=== PATIENT | female | born 1980 | race Caucasian/White ===

== ENCOUNTER 2016-07-21 05:58 | Inpatient (IN) | payer OTHER ==
[~2016-07-21] VITALS: Ht 172.7 cm; Wt 105.7 kg
[2016-07-21 08:08] LABS: ABSOLUTE BASOPHIL COUNT 0 /CUMM (0.0-0.2); ABSOLUTE EOSINOPHIL COUNT 0.1 /CUMM (0.0-0.7); ABSOLUTE GRANULOCYTE CT 7.4 /CUMM (1.4-6.5); ABSOLUTE LYMPH COUNT 1.2 /CUMM (1.2-3.4); ABSOLUTE MONOCYTE COUNT 0.6 /CUMM (0.10-0.60); BASOPHIL % 0.2 % (0.0-2.0); EOSINOPHIL % 1.4 % (0-5); HEMATOCRIT 33.8 % (37-47); MEAN CORPUSCULAR HGB 29.4 PG (27.0-31.0); MEAN CORPUSCULAR HGB CONC 33.8 G/DL (33.0-37.0); MEAN CORPUSCULAR VOLUME 86.9 FL (81.0-99.0); PLATELET COUNT 317 /CUMM (130-400); RBC DISTRIBUTION WIDTH 13.9 % (11.5-14.5); RED BLOOD CELL CT 3.88 /CUMM (4.20-5.40); WHITE BLOOD CELL COUNT 9.3 /CUMM (4.8-10.8)
[2016-07-22 07:55] LABS: ABSOLUTE BASOPHIL COUNT 0 /CUMM (0.0-0.2); ABSOLUTE EOSINOPHIL COUNT 0.1 /CUMM (0.0-0.7); ABSOLUTE GRANULOCYTE CT 8.7 /CUMM (1.4-6.5); ABSOLUTE LYMPH COUNT 1.4 /CUMM (1.2-3.4); ABSOLUTE MONOCYTE COUNT 0.6 /CUMM (0.10-0.60); BASOPHIL % 0.3 % (0.0-2.0); HEMATOCRIT 34.3 % (37-47); MEAN CORPUSCULAR HGB 29.3 PG (27.0-31.0); MEAN CORPUSCULAR HGB CONC 33.4 G/DL (33.0-37.0); MEAN CORPUSCULAR VOLUME 87.7 FL (81.0-99.0); MEAN PLATELET VOLUME 9.1 FL (7.4-10.4); PLATELET COUNT 313 /CUMM (130-400); RBC DISTRIBUTION WIDTH 14.9 % (11.5-14.5); RED BLOOD CELL CT 3.92 /CUMM (4.20-5.40); WHITE BLOOD CELL COUNT 10.8 /CUMM (4.8-10.8)
--- NOTE | 2016-07-22 12:49 | Labor & Delivery Summary ---
Delivery Summary Vaginal Delivery: Vaginal: vertex Episiotomy/Lacerations: Episiotomy/Lacerations: epis Type: rml Repair: 3-0 Anesthesia: epi Placenta: Placenta: spontanteous, normal, 3 vessel Baby's Weight: 7-14 Apgars - 1 Min: 9 Apgars - 5 Min: 9
[2016-07-22] MEDS ORDERED: IBUPROFEN800 M1 PO (12:50)
[2016-07-22] MEDS ORDERED: DOCUSATE SODIU100 M3 PO (12:50)
--- NOTE | 2016-07-22 12:50 | PN- Post Delivery/GYN ---
Subjective Subjective: no c./o Review of Systems: neg Objective Last 24 Hrs of Vital Signs/I&O ff ext nt Assessment/Plan Assessment/Plan s/p ppd1 stable circ discharge tomorrow Problem List: 1.
[2016-07-23 07:56] VITALS: BP 131/774
--- NOTE | 2016-07-23 10:11 | PN- Post Delivery/GYN ---
Subjective Subjective: Overal doing very well. With no complaints Ambulating, voiding, tolerating PO with no N/V. Pain controlled with PO meds. Lochia is minimal. Passing gas. well. Review of Systems: Per above Objective Last 24 Hrs of Vital Signs/I&O Vital Signs Date Time Temp Pulse Resp B/P Pulse O2 O2 Flow FiO2 Ox Delivery Rate 07/23 0756 98.6 86 20 131/774 99% Physical Exam: Gen: NAD CV: RRR, S1 and S2 Lungs: CTAB Abd: Good BS, NT, fundus below umbilicus and firm Ext: +1 pitting edema, no erythema Current Medications: Current Medications Sig/Lorri Start time Last Medication Dose Route Stop Time Status Admin Docusate Sodium 100 MG BID PRN 07/21 1330 AC PO Ibuprofen 800 MG .STK-MED ONE 07/22 2057 DC PO 07/22 205 Ibuprofen 800 MG .STK-MED ONE 07/22 1431 DC PO 07/22 1432 Ibuprofen 800 MG Q6P PRN 07/21 1330 AC 07/23 PO 0807 Oxycodone/ 1 TAB Q3P PRN 07/21 1330 AC Acetaminophen PO Assessment/Plan Assessment/Plan 35 YO female PPD#2 s/p , overal doing well 1) Meeting all milestones Continue to breastfeed. Continue to monitor lochia and vitals Plan to discharge today. Precuations and instructions given. Voiced understanding. Attending MD Review Statement Attending Statement Attending MD Statement: examined this patient, discussed with family, discussed with nursing
== END 2016-07-23 11:05 | DRG 775 ==
LOC: CBCO 05:58 → GNO 06:36
PROVIDERS: ADMIT Obstetrics & Gynecology
PROC: 0W8NXZZ Division of Female Perineum, External Approach (ICD-10-PCS; principal; 2016-07-21)
PROC: 10E0XZZ Delivery of Products of Conception, External Approach (ICD-10-PCS; principal; 2016-07-21)
DX: O99.824 Streptococcus B carrier state complicating childbirth (principal); Z37.0 Single live birth; Z3A.39 39 weeks gestation of pregnancy
CPT/HCPCS: GNOP; 36415; 81003; 87086; J7120